=== PATIENT | male | born 1960 | race Caucasian/White ===

== ENCOUNTER → 2019-11-28 | Outpatient (CLI) | payer MEDICAID ==
[2019-11-28 09:10] LABS: BASOPHILS % (AUTO) 0 % (0-10); EOSINOPHILS # (AUTO) 0.1 10^3/uL (0.0-0.3); EOSINOPHILS % (AUTO) 1 % (0-10); HEMATOCRIT 41 % (40-54); HEMOGLOBIN 14.1 G/DL (13.3-17.7); LYMPHOCYTES # (AUTO) 1.6 X 10^3 (1.0-4.0); LYMPHOCYTES % (AUTO) 21 % (12-44); MEAN CORPUSCULAR HEMOGLOBIN 32 PG (25-34); MEAN CORPUSCULAR HGB CONC 34 G/DL (32-36); MEAN CORPUSCULAR VOLUME 93 FL (80-99); MEAN PLATELET VOLUME 10.5 FL (7.4-10.4); MONOCYTES # (AUTO) 0.7 X 10^3 (0.0-1.0); MONOCYTES % (AUTO) 9 % (0-12); NEUTROPHILS # (AUTO) 5.2 X 10^3 (1.8-7.8); NEUTROPHILS % (AUTO) 69 % (42-75); PLATELET COUNT 248 10^3/uL (130-400); RED CELL DISTRIBUTION WIDTH 13.5 % (10.0-14.5); WHITE BLOOD COUNT 7.5 10^3/uL (4.3-11.0)
[2019-11-28 09:21] LABS: ALBUMIN 4.7 GM/DL (3.2-4.5); CHLORIDE 107 MMOL/L (98-107); SODIUM 139 MMOL/L (135-145)
[2019-11-28 09:22] LABS: CALCIUM 9.7 MG/DL (8.5-10.1)
[2019-11-28 09:23] LABS: TOTAL PROTEIN 7.7 GM/DL (6.4-8.2); TRIGLYCERIDES 89 MG/DL (<150); VLDL CHOLESTEROL 18 MG/DL (5-40)
[2019-11-28 09:24] LABS: CARBON DIOXIDE 21 MMOL/L (21-32); GLUCOSE 111 MG/DL (70-105)
[2019-11-28 09:25] LABS: BILIRUBIN,TOTAL 0.6 MG/DL (0.1-1.0)
[2019-11-28 09:27] LABS: ALKALINE PHOSPHATASE 72 U/L (40-136); CREATININE SERUM 1.19 MG/DL (0.60-1.30); GFR ESTIMATED > 60
--- NOTE | 2019-11-28 09:27 | Diagnostic Imaging Report ---
INDICATION: Bilateral knee pain. AP and lateral views of both knees are obtained. FINDINGS: No fracture or acute bony abnormality is seen. On the right side, there is medial joint space narrowing with osteophyte formation as well as some patellofemoral spurring and joint space narrowing. On the left side, there is minimal medial joint space narrowing. Remaining joint spaces are unremarkable. There is no overt joint effusion. IMPRESSION: Degenerative findings of both knees, right worse than left. No acute finding. Dictated by: Dictated on workstation # [id number]
[2019-11-28 09:28] LABS: BUN/CREATININE RATIO 21; CHOLESTEROL 191 MG/DL (< 200)
[2019-11-28 09:29] LABS: HDL CHOLESTEROL 43 MG/DL (40-60)
[2019-11-28 09:30] LABS: ALANINE AMINOTRANSFERASE 23 U/L (0-55)
--- NOTE | 2019-11-28 09:40 | Diagnostic Imaging Report ---
INDICATION: Neck pain. TECHNIQUE: AP, odontoid, and lateral views of the cervical spine were obtained. FINDINGS: The cervical vertebrae are normal in height and alignment. There is no fracture or subluxation. Osteophyte formation is seen at C5-C6 and C6-C7 without significant disc space narrowing. There is mild diffuse facet degenerative change. IMPRESSION: Degenerative findings of the cervical spine as described above with no acute appearing abnormality. Dictated by: Dictated on workstation # [id number]
[2019-11-28 21:54] LABS: HEPATITIS C ANTIBODY C Non-Reactive (Non-Reactive)
== END ==
LOC: RAD 08:37
PROVIDERS: ATTEND Nurse Practitioner Family
DX: M47.812 Spondylosis without myelopathy or radiculopathy, cervical region (principal); M17.0 Bilateral primary osteoarthritis of knee; I10 Essential (primary) hypertension; R10.13 Epigastric pain; R53.82 Chronic fatigue, unspecified; E55.9 Vitamin D deficiency, unspecified; Z79.899 Other long term (current) drug therapy; Z13.29 Encounter for screening for other suspected endocrine disorder; Z13.220 Encounter for screening for lipoid disorders; Z12.5 Encounter for screening for malignant neoplasm of prostate; Z20.5 Contact with and (suspected) exposure to viral hepatitis
CPT/HCPCS: 36415; 72040; 80053; 80061; 80074; 82306; 84153; 84443; 85025; 86663; 86664; 86665